=== PATIENT | female | born 1960 | race Caucasian/White ===

== ENCOUNTER 2020-06-11 05:04 | Observation (INO) ==
--- NOTE | 2020-05-20 09:38 | PAT Medication Instructions ---
Medication Instructions Date of Service May 20, 2020 Home Medications albuterol sulfate 90 mcg/actuation breath activated powder inhaler 2 inh INHALATION Q6H PRN beclomethasone dipropionate 80 mcg/actuation HFA breath activated aerosol 2 inh INHALATION BID budesonide-formoterol HFA 160 mcg-4.5 mcg/actuation aerosol inhaler 2 puff INHALATION BID desloratadine 5 mg tablet 5 mg PO QAM escitalopram oxalate 10 mg tablet 10 mg PO QAM lansoprazole 15 mg capsule,delayed release 15 mg PO HS levothyroxine 125 mcg capsule 125 mcg PO QAM lisinopril 5 mg tablet 5 mg PO QAM mometasone 50 mcg/actuation nasal spray 2 spray INTRANASAL BID simvastatin 20 mg tablet 20 mg PO HS trazodone 50 mg tablet 50 mg PO HS triamterene 37.5 mg-hydrochlorothiazide 25 mg capsule 1 cap PO QAM Theraworx 1 dose TOPICAL QAM acetaminophen 1,300 mg PO BID diclofenac sodium [Voltaren] 2 g TOPICAL QID PRN fiber 2 cap PO BID keanzgrx-rsups-hjhrh-CF borate [[facility]] 2 tab PO QPM ibuprofen [Advil] 600 mg PO BID inulin [Fiber Gummies] 4 g PO QAM multivitamin 2 tab PO QAM omega-3 fatty acids [[place] 3] 2,000 mg PO QPM ASK your surgeon for instructions ibuprofen [Advil] 600 mg PO BID STOP taking 2 weeks before surgery (or as soon as possible if surgery is within 2 weeks) gduwtiov-tiwia-mozoh-CF borate [Frogdice] 2 tab PO QPM omega-3 fatty acids [Ray[place] 3] 2,000 mg PO QPM STOP taking 24 hours before surgery Theraworx 1 dose TOPICAL QAM diclofenac sodium [Voltaren] 2 g TOPICAL QID PRN DO NOT take the morning of surgery desloratadine 5 mg tablet 5 mg PO QAM lisinopril 5 mg tablet 5 mg PO QAM triamterene 37.5 mg-hydrochlorothiazide 25 mg capsule 1 cap PO QAM fiber 2 cap PO BID inulin [Fiber Gummies] 4 g PO QAM multivitamin 2 tab PO QAM Take morning of surgery With a small sip of water, OTHERWISE NOTHING TO EAT OR DRINK AFTER MIDNIGHT: albuterol sulfate 90 mcg/actuation breath activated powder inhaler 2 inh INHALATION Q6H PRN (use if needed; please bring rescue inhaler with you to hospital day of surgery if possible) beclomethasone dipropionate 80 mcg/actuation HFA breath activated aerosol 2 inh INHALATION BID budesonide-formoterol HFA 160 mcg-4.5 mcg/actuation aerosol inhaler 2 puff INHALATION BID escitalopram oxalate 10 mg tablet 10 mg PO QAM levothyroxine 125 mcg capsule 125 mcg PO QAM mometasone 50 mcg/actuation nasal spray 2 spray INTRANASAL BID acetaminophen 1,300 mg PO BID (okay to take up to 4 hours prior to surgery if needed) Take evening before surgery albuterol sulfate 90 mcg/actuation breath activated powder inhaler 2 inh INHALATION Q6H PRN (if needed) beclomethasone dipropionate 80 mcg/actuation HFA breath activated aerosol 2 inh INHALATION BID budesonide-formoterol HFA 160 mcg-4.5 mcg/actuation aerosol inhaler 2 puff INHALATION BID lansoprazole 15 mg capsule,delayed release 15 mg PO HS mometasone 50 mcg/actuation nasal spray 2 spray INTRANASAL BID simvastatin 20 mg tablet 20 mg PO HS trazodone 50 mg tablet 50 mg PO HS acetaminophen 1,300 mg PO BID fiber 2 cap PO BID Other Notes If you have any questions please call us at [phone] or [phone] or [phone] or [phone]
--- NOTE | 2020-05-21 10:35 | Anesthesiology Consultation ---
Date of Service May 21, 2020 Assessment & Plan (1) Encounter for pre-operative examination: COVID screening: Per assessment on 05/21: Travel screen negative, no known COVID- 19 positive contacts or current COVID-19 related symptoms. Surgeon arranging preop COVID testing (scheduled 06/05; [facility]). Awaiting results. Chart Review Chart Review: Acceptable Risk for Surgery and Patient seen in Pre Admission Testing Teaching & Discussion Pre-Anesthesia Teaching/Discussion Notes: Instructed NPO after midnight before surgery,except medications with 15 cc of water. Medication instructions provided according to the PAT guidelines. History Surgery Operation Date: 06/11/20 07:30 Proposed Procedures p Left Total Hip Arthroplasty - Jose Luis Bertrand MD Height/Weight Height: 5 ft 1 in Weight: 83.4 kg Allergies Allergy/AdvReac Type Severity Reaction Status Date / Time Penicillins Allergy Unknown Hives Verified 05/20/20 16:05 aspirin AdvReac Unknown Nose Bleed Verified 04/29/20 14:34 morphine AdvReac Unknown Vomiting Verified 05/20/20 16:05 Medications Home Medications Medication Instructions Recorded Confirmed Last Taken albuterol sulfate 90 mcg/actuation 2 inh INHALATION Q6H PRN 11/25/19 04/29/20 Unknown breath activated powder inhaler beclomethasone dipropionate 80 2 inh INHALATION BID 11/25/19 04/29/20 Unknown mcg/actuation HFA breath activated aerosol budesonide-formoterol HFA 160 2 puff INHALATION BID 11/25/19 04/29/20 Unknown mcg-4.5 mcg/actuation aerosol inhaler desloratadine 5 mg tablet 5 mg PO QAM 11/25/19 04/29/20 Unknown escitalopram oxalate 10 mg tablet 10 mg PO QAM 11/25/19 04/29/20 Unknown lansoprazole 15 mg capsule,delayed 15 mg PO HS 11/25/19 04/29/20 Unknown release levothyroxine 125 mcg capsule 125 mcg PO QAM 11/25/19 04/29/20 Unknown lisinopril 5 mg tablet 5 mg PO QAM 11/25/19 04/29/20 Unknown mometasone 50 mcg/actuation nasal 2 spray INTRANASAL BID 11/25/19 04/29/20 Unknown spray simvastatin 20 mg tablet 20 mg PO HS 11/25/19 04/29/20 Unknown trazodone 50 mg tablet 50 mg PO HS 11/25/19 04/29/20 Unknown triamterene 37.5 1 cap PO QAM 11/25/19 04/29/20 Unknown mg-hydrochlorothiazide 25 mg capsule Theraworx 1 dose TOPICAL QAM 04/29/20 04/29/20 Unknown acetaminophen 1,300 mg PO BID 04/29/20 04/29/20 Unknown diclofenac sodium [Voltaren] 2 g TOPICAL QID PRN 04/29/20 04/29/20 Unknown fiber 2 cap PO BID 04/29/20 04/29/20 Unknown peirbmwf-yhgke-muvqh-CF borate 2 tab PO QPM 04/29/20 04/29/20 Unknown [[facility]] ibuprofen [Advil] 600 mg PO BID 04/29/20 04/29/20 Unknown inulin [Fiber Gummies] 4 g PO QAM 04/29/20 04/29/20 Unknown multivitamin 2 tab PO QAM 04/29/20 04/29/20 Unknown omega-3 fatty acids [[place] 3] 2,000 mg PO QPM 04/29/20 04/29/20 Unknown Past Medical History Medical History Asthma Allergies induced, no recent flares GERD (gastroesophageal reflux disease) controlled Hx of gastric ulcer Remote hx Hyperlipidemia Hypertension Obesity Osteoarthritis Exercise / Class Metabolic Activity II 4-5 Yardwork/Stairs/Walk up hill Past Family History Family History Other Coronary heart disease No family history of adverse response to anesthesia Prostate cancer Past Surgical History Surgical History H/O tubal ligation History of colonoscopy History of esophagogastroduodenoscopy (EGD) History of placement of ear tubes BMT History of tonsillectomy Past Anesthesia History No Hx of Anesthesia Complications and No Family Hx of Anesthesia Complications History of PONV No Hx of PONV and No Hx of Motion Sickness Social History Smoking Status: Never smoker Do You Dip or Chew Tobacco: No Hx Alcohol Use: No Hx Substance Use: No substance use type: does not use Review of Systems No snoring. Patient denies chest pain, shortness of breath, dyspnea on exertion, fever, chills, cough, wheezing, palpitations. Physical Exam Vital Signs VITALS BP 149/89 P 72 TEMP 97.9 SP02 94%RA RESP 18 PHYSICAL Full cervical extension range of motion. Full TMJ range of motion. TMD 3 finger breaths Mallampati Score 1 Dentition: intact Lungs: clear throughout to auscultation Cardiac: regular rate and rhythm, no murmurs noted Spine: normal Carotid arteries: negative bruit Extremities: no edema Short neck Testing Laboratory Results 05/21/20 11:03 05/21/20 11:03 PT 10.1 Seconds (9.0-12.0) 05/21/20 11:03 INR 1.0 (0.9-1.1) 05/21/20 11:03 APTT 24.5 Seconds (21.0-31.0) 05/21/20 11:03 Blood Type O Positive 05/21/20 11:03 Antibody Screen NEGATIVE 05/21/20 11:03 Electrocardiogram Date: 05/21/20 NSR at 76bpm. unconfirmed report. Chest X-Ray Date: 05/21/20 FINDINGS: Cardiomediastinal and hilar silhouettes are within normal limits. No pneumothorax, pleural effusion, airspace consolidation or overt pulmonary edema. Degenerative changes of the shoulders and spine. Mild right hemidiaphragmatic elevation. IMPRESSION: No acute process.
--- NOTE | 2020-05-21 11:27 | XRay Report ---
XR chest Pre-admission PA/Lat HISTORY: 59 years-old Female pat preoperative exam. No acute chest complaints COMPARISON: None TECHNIQUE: PA and lateral views of the chest FINDINGS: Cardiomediastinal and hilar silhouettes are within normal limits. No pneumothorax, pleural effusion, airspace consolidation or overt pulmonary edema. Degenerative changes of the shoulders and spine. Mil d right hemidiaphragmatic elevation. IMPRESSION: No acute process. ACT 112: Negative or not required by law. The above report was generated using voice recognition software. It may contain grammatical, syntax o r spelling errors. Electronically signed by: Danilo Fernandez M.D. 05/21/2020 11:26 AM
[2020-05-21 11:40] LABS: Basophils # (auto) 0.03 K/uL (0-0.2); Basophils % (auto) 0.3 %; Hematocrit (blood only) 42.8 % (37-47); Hemoglobin 14.5 g/dL (12.0-16.0); Immature Granulocytes # (auto) 0.01 K/uL (0.00-0.02); Immature Granulocytes % (auto) 0.1 %; Lymphocytes # (auto) 1.86 K/uL (1.2-3.4); Lymphocytes % (auto) 17.8 %; Mean Corpuscular Hemoglobin 31.5 pg (25-34); Mean Corpuscular Hgb Conc 33.9 g/dL (32-36); Mean Platelet Volume 9.5 fL (7.4-10.4); Monocytes # (auto) 0.93 K/uL (0.11-0.59); Monocytes % (auto) 8.9 %; Neutrophils # (auto) 7.51 K/uL (1.4-6.5); Neutrophils % (auto) 71.9 %; Platelet Count 289 K/uL (130-400); RDW Coefficient of Variation 12.6 % (11.5-14.5); RDW Standard Deviation 42.5 fL (36.4-46.3); White Blood Count 10.44 K/uL (4.8-10.8)
[2020-05-21 11:41] LABS: Partial Thromboplastin Ratio 0.9; Partial Thromboplastin Time 24.5 Seconds (21.0-31.0); Prothrombin Time 10.1 Seconds (9.0-12.0)
[2020-05-21 14:27] LABS: BUN Creatinine Ratio 15.2 (10-20); Calcium 9.5 mg/dl (8.5-10.1); Creatinine Clr Calc Pharmacy 68.3 ml/min; Est GFR (African American) 83.4; Est GFR (Non-African American) 71.9; Potassium 4.3 mmol/L (3.5-5.1)
--- NOTE | 2020-05-21 17:07 | Electrocardiogram Report ---
Test Reason : Blood Pressure : / mmHG Vent. Rate : 076 BPM Atrial Rate : 076 BPM P-R Int : 172 ms QRS Dur : 084 ms QT Int : 392 ms P-R-T Axes : 066 061 052 degrees QTc Int : 441 ms Normal sinus rhythm Normal ECG No previous ECGs available Confirmed by Royer Thompson ([id number]) on 05/21/2020 5:07:15 PM Referred By: Jose Luis Bertrand Confirmed By:Basil Thompson
[2020-06-11] MEDS ORDERED: Scopolamine 1 MG TDSY TD SCH (06:00)
[2020-06-11] MEDS ORDERED: METOCLOPRAMIDE HCL 10 MG TABLET PO SCH (06:00)
[2020-06-11] MEDS ORDERED: LR 500ML BOLUS, THEN 15ML/HR IV SCH (06:00)
[2020-06-11] MEDS ORDERED: ceFAZolin 2000MG 2,000 MG/15 ML SYR IV SCH (06:00)
[2020-06-11] MEDS ORDERED: GABAPENTIN 600 MG DOSE PO SCH (06:00)
[2020-06-11] MEDS ORDERED: LR 60ML/HR IV SCH (06:00)
[2020-06-11] MEDS ORDERED: ACETAMINOPHEN 500 MG TAB PO SCH (06:00)
[2020-06-11] MEDS ORDERED: FAMOTIDINE 20 MG TAB PO SCH (06:00)
[2020-06-11] MEDS ORDERED: TRANEXAMIC ACID 1,000 MG **IV Pre-op IV SCH (06:00)
[2020-06-11] MEDS ORDERED: BUPIVACAINE 0.5 % 5 MG/1 ML PF 10ML VIAL ONE (06:20)
[2020-06-11] MEDS ORDERED: BUPIVACAINE/EPINEPHRINE 0.5% MPF 1:200,000 30 ML VIAL ONE (06:40)
[2020-06-11] MEDS ORDERED: BACITRACIN INJ 50,000 UNIT VIAL ONE (06:40)
[2020-06-11] MEDS ORDERED: PROPOFOL IV EMULSION 10 MG/ML 20 ML VIAL IV ONE (06:42)
[2020-06-11] MEDS ORDERED: MIDAZOLAM HCL 1 MG/ML 2ML VIAL ONE ×2 (06:42→07:56)
[2020-06-11] MEDS ORDERED: LIDOCAINE HCL 2% 2 ML VIAL/AMP(20MG/ML) INFIL ONE (06:42)
[2020-06-11] MEDS ORDERED: MoRPHine SULFATE PF 1 MG/ML 10 ML AMP/VIAL ONE (06:45)
--- NOTE | 2020-06-11 06:50 | History & Physical Bridge Note ---
Date of Service June 11, 2020 History & Physical Bridge Note I have examined the patient, reviewed the History & Physical and in the interval since the performance of the History & Physical I have noted the following changes of clinical significance: no changes noted
[2020-06-11] MEDS ORDERED: MEPERIDINE HCL 25 MG/ML CARP/VIAL IV PRN (07:09)
[2020-06-11] MEDS ORDERED: MoRPHine SULFATE PF 1 MG/ML 10 ML AMP/VIAL INT SPINAL ONE (07:09)
[2020-06-11] MEDS ORDERED: diphenhydrAMINE 50 MG/ML VIAL IV PRN (07:09)
[2020-06-11] MEDS ORDERED: NALOXONE HCL 1 MG in SODIUM CHLORIDE 0.9% 1000ML 1,000 ML IV PRN (07:09)
[2020-06-11] MEDS ORDERED: NALOXONE HCL 0.08 MG in SYRINGE 1.8 ML IV PRN (07:09)
[2020-06-11] MEDS ORDERED: NALOXONE HCL 0.4 MG/1 ML VIAL/CARP IV PRN ×2 (07:09→09:49)
[2020-06-11] MEDS ORDERED: LACTATED RINGER'S 500 ML IV PRN (07:09)
[2020-06-11] MEDS ORDERED: ONDANSETRON INJ 2 MG/ML 2 ML VIAL IV PRN (07:09)
[2020-06-11] MEDS ORDERED: ePHEDrine sulfate 50 MG/ML AMP IV PRN (07:09)
[2020-06-11] MEDS ORDERED: DC INTRASPINAL MORPHINE SCH (07:15)
[2020-06-11] MEDS ORDERED: SODIUM CHLORIDE 0.9% 1000ML 1,000 ML IV SCH (07:15)
[2020-06-11] MEDS ORDERED: NO NARCOTICS OR SEDATIVES SCH (07:15)
[2020-06-11] MEDS ORDERED: KETAMINE 50 MG/5 ML SYRINGE ONE (07:37)
[2020-06-11] MEDS ORDERED: PHENYLEPHRINE 100MCG/ML 5ML SYR ONE (08:04)
--- NOTE | 2020-06-11 08:26 | Post Operative Brief Note ---
PG Immediate Post Op with CF Date of Surgery June 11, 2020 Pre & Post Diagnosis Operation Date: 06/11/20 07:00 Pre-Op Diagnosis: Left Hip Degenerative Joint Disease Post-Op Diagnosis: Left Hip Degenerative Joint Disease I identified the patient and participated in the time-out.: Yes Procedure Operation Date: 06/11/20 07:00 Actual Procedures p Left Total Hip Arthroplasty(Left) - Jose Luis Bertrand MD Surgeon Jose Luis Bertrand MD [employer] NERI Jackson Estimated Blood Loss 200 Findings Consistent with Post-Op Diagnosis Fluids 1000 cc Specimens Specimen Description: Permanent A. Left femoral head Drains Salvador Catheter Anesthesia Type Spinal MAC Disposition Accompanied Patient To Recovery: Yes Disposition: Recovery Room
--- NOTE | 2020-06-11 08:46 | XRay Report ---
AP PELVIS, AP AND CROSSTABLE LATERAL LEFT HIP History: Left total hip arthroplasty. Degenerative arthritis. Postop. FINDINGS: The patient is status post a left total hip arthroplasty. The hardware is intact. No fractu re or dislocation. Skin evon are in place. IMPRESSION: Left total hip arthroplasty. No evidence for hardware complication. ACT 112: Negative or not required by law. Electronically signed by: Shawn Chambers M.D. 06/11/2020 8:45 AM
--- NOTE | 2020-06-11 09:13 | Anesthesiology Progress Note ---
Date of Service June 11, 2020 Anesthesia Post Procedure Vital Signs Vital Signs: Temp Pulse Pulse Resp BP Pulse Ox 06/11/20 09:00 97.5 F L 86 13 120/67 94 06/11/20 08:50 97.5 F L 87 12 117/75 100 06/11/20 08:40 98 H 14 121/66 100 06/11/20 08:30 83 16 102/52 L 98 06/11/20 08:21 97.0 F L 88 18 98/50 L 94 06/11/20 05:20 98.1 F 87 20 187/91 H 99 Transfer of Care Handoff Completed per policy Notes Mental Status: alert / awake / arousable and participated in evaluation Patient Amnestic to Procedure: Yes Nausea / Vomiting: adequately controlled Pain: adequately controlled Airway Patency, RR, SpO2: stable & adequate BP & HR: stable & adequate Hydration State: stable & adequate Anesthetic Complications: no major complications apparent and Pt Satisfied with anesthetic care
[2020-06-11] MEDS ORDERED: BUDESONIDE/FORMOTEROL FUMARATE 160/4.5 60 PUFFS/INHALER INH SCH (09:49)
[2020-06-11] MEDS ORDERED: ALUMINUM/MAGNESIUM SUSP 30 ML UDC PO PRN (09:49)
[2020-06-11] MEDS ORDERED: NON-FORMULARY MEDICATION (Inulin [Fiber Gummies] 2 gram Tablet,Chewable) PO SCH (09:49)
[2020-06-11] MEDS ORDERED: MAGNESIUM HYDROXIDE SUSP 30 ML UDC PO PRN (09:49)
[2020-06-11] MEDS ORDERED: bisacodyL 10 MG SUPP PR PRN (09:49)
[2020-06-11] MEDS ORDERED: [UNRECOGNIZED DRUG - OTHER] TOP SCH (09:49)
[2020-06-11] MEDS ORDERED: NON-FORMULARY MEDICATION (Multivitamin Tablet,Chewable) PO SCH (09:49)
[2020-06-11] MEDS: SODIUM CHLORIDE 0.9% 1000ML 1,000 ML IV SCH ×2 (10:09→20:07)
[2020-06-11] MEDS ORDERED: TRIAMTERENE/HCTZ 37.5/25MG CAP PO ONE (10:15)
[2020-06-11] MEDS ORDERED: DOCUSATE SODIUM 100 MG CAP PO ONE (10:15)
[2020-06-11] MEDS ORDERED: LEVOTHYROXINE SODIUM 125 MCG TABLET PO ONE (10:15)
[2020-06-11] MEDS ORDERED: FLUTICASONE/VILANTEROL 200/25MCG 14 PUFFS/INHALER INH ONE (10:15)
[2020-06-11] MEDS ORDERED: lisinopril 5 MG TAB PO ONE (10:15)
[2020-06-11] MEDS ORDERED: FLUTICASONE FUROATE 200MCG 14 PUFFS/INHALER INH ONE (10:15)
[2020-06-11] MEDS ORDERED: ASPIRIN 81 MG ECTAB PO ONE (10:15)
[2020-06-11] MEDS ORDERED: ESCITALOPRAM OXALATE 10 MG TAB PO ONE (10:15)
[2020-06-11] MEDS ORDERED: MULTIVITAMIN TAB PO ONE (10:15)
[2020-06-11] MEDS ORDERED: ALBUTEROL HFA 8 GM INHALER INH PRN (10:15)
[2020-06-11] MEDS: CLARINEX~ORDER AWAITING ACTION SCH ×3 (11:04→23:28)
[2020-06-11] MEDS ORDERED: KETOROLAC 30 MG/ML VIAL IV ONE (12:00)
[2020-06-11] MEDS: ACETAMINOPHEN 500 MG TAB PO SCH ×2 (13:37→22:22)
[2020-06-11] MEDS ORDERED: TRANEXAMIC ACID / 0.7% NACL 1,000 MG/100 ML BAG IV SCH (15:00)
--- NOTE | 2020-06-11 15:06 | Progress Notes ---
DATE: 06/11/2020 SUBJECTIVE: A 59-year-old white female postop from a left hip replacement. She is doing well. Not having any pain yet. No chest pain or shortness of breath. Not feeling dizzy or lightheaded. OBJECTIVE: VITAL SIGNS: Temperature 37.0. Vital signs are stable. GENERAL: Shows a pleasant, middle-aged female. She is sitting up in bed and using her phone. She looks quite comfortable. LUNGS: Clear to auscultation. HEART: Regular rate and rhythm. ABDOMEN: Soft, nontender, nondistended. EXTREMITIES: Grossly neurovascularly intact except as follows: Examination of the left hip and leg reveals the leg lengths are equal. Hip is located. Dressing is clean, dry and intact. Thigh is soft and supple. She is neurologically intact. X-RAYS: X-rays of the left hip from recovery room are reviewed. It shows left uncemented total hip arthroplasty. Components looked to be in good position. No signs of problems. ASSESSMENT: A 59-year-old white female postoperative from a left uncemented total hip arthroplasty. She is doing well. Pain is controlled. Hip is located. She is neurologically intact. PLAN: 1. DVT prophylaxis including thigh-high TEDs, SCDs, and aspirin twice a day. 2. PT/OT. Weight bear as tolerated. Left total hip protocol. 3. Pain control, doing well with current pain regimen. 4. Disposition: Plan to discharge to home with some home health once adequately recovered and medically stable.
[2020-06-11] MEDS: Scopolamine CHECK PATCH PLACEMENT SCH ×2 (15:35→23:28)
[2020-06-11] MEDS: ceFAZolin 2000MG 2,000 MG/15 ML SYR IV SCH ×2 (15:39→23:32)
--- NOTE | 2020-06-11 16:51 | Operative Report ---
Post Operative Report Pre & Post Diagnosis Operation Date: 06/11/20 07:00 Pre-Op Diagnosis: Left Hip Degenerative Joint Disease Post-Op Diagnosis: Left Hip Degenerative Joint Disease I identified the patient and participated in the time-out.: Yes Procedure Operation Date: 06/11/20 07:00 Actual Procedures p Left Total Hip Arthroplasty(Left) - Jose Luis Bertrand MD Surgeon Jose Luis Bertrand MD [employer] NERI Jackson Estimated Blood Loss 200 Findings Consistent with Post-Op Diagnosis Operative findings revealed advanced left hip DJD. She had extensive grade 4 [id number] disease of the femoral head and acetabulum. She had a large medial side osteophyte. Moderate-sized joint effusion. Fluids 1000 cc Specimens Left femoral head sent for pathology. Drains None Anesthesia Type Spinal MAC Complications none Disposition Accompanied Patient To Recovery: Yes Disposition: Recovery Room Indications Patient is a 59-year-old female has had a several year history of increasing left hip pain discomfort gradually progressed despite conservative care. X-ray showed revealed advanced hip DJD. She elected proceed with total hip arthroplasty. Description of Procedure Operative implants consist of: 1. Biomet G7 size 50 mm acetabular shell. 2. 6.5 cancellous acetabular screws 135 mm length 125 mm length. 3. [place] hole pattern storage clerk. 4. 50 mm outer diameter and 32 mm diameter highly cross-linked polyethylene liner. 5. Melany Corail size 10 KLA femoral stem. 6. +5/32 mm ceramic articular ball. The patient was taken to the operating room, identified, and placed on the operating table supine position but all contractors were properly padded. IV antibiotics tried by anesthesia team. A spinal anesthetic and been implemented holding area. Salvador catheter was placed in sterile fashion. The patient was then placed in the right lateral decubitus position. An axillary roll was placed. [place] hip positioner was used for positioning. The left hip and leg were then prepped and draped in usual sterile fashion. A posterior lateral approach to the left hip was then performed through a curvilinear incision centered over the greater trochanter. Sharp dissection got through subcutaneous tissue down to the IT band gluteal fascia the IT band gluteal fascia then incised longitudinally in line with skin incision. The underlying greater bursa was excised. The piriformis and external rotators were taken off the posterior aspect hip joint capsule. Great care was taken throughout the procedure protect the sciatic nerve at all times. A posterior capsulotomy was then performed leaving a large flap for later repair. It was internally rotated and dislocated. Femoral neck osteotomy cut was made with Final Cut 12 mm above the lesser trochanter. Femoral head was removed and sent for pathology. The femur was retracted anteriorly. Attention drawn the acetabulum. The acetabular labrum was excised per the pulmonary fat was excised. Sequential reaming the acetabular was then performed given the size 43 and progressing up to 49. I did reamed a little bit with a 50 reamer. A 50 mm Biomet G7 acetabular shell was then placed in about 40 degrees lateral opening and 20 degrees of anteversion. It was fixed with two 6.5 cancellous acetabular screws. A trial liner was placed. A small anterior osteophyte was removed. Attention drawn the femur. The proximal femur was entered with a cookie-cutter followed by canal finder. Broached begin the size 8 and progressed to do a 10. Got good fit of the 10. I then trialed the hip and the +5 articular ball recreated soft tissue tension appropriately and leg lengths equal. The hip was fully stable in full extension and external rotation and flexion to 9 degrees internal rotation over [address] I elect to place these implants. All trial implants were removed. An apex hole pattern storage clerk was placed. Highly cross-linked polyethylene liner was placed. A DePuy Step On Up GraphicsA size 10 femoral stem was impacted in position. A +5/32 mm ceramic articular ball was placed. Hip wa s located once again found to be stable. Attention drawn toward closing. The wound was irrigated with copious also pulsatile lavage solution. I did inject locally with 60 cc of half percent Marcaine with epinephrine. The posterior capsule and external rotators were then repaired through drill holes in the posterior trochanter with #2 Tycron suture. The IT band gluteal fascia then closed in 1 PDS suture in a running fashion for the subcutaneous tissue then closed with 2 layers the deep layer #1 Vicryl suture and superficial layer with 2-0 Dexon suture in a buried interrupted fashion. Skin was closed skin evon. Leg was then cleaned dried and sterile dressing applied Xeroform, 4 x 4's, ABD pad, foam tape was applied. Patient then transferred to the recovery room in stable condition. Patient tolerated procedure well and there were no complications. Celestino Jackson, my physician high school assistant principal, was present for the entire procedure. His assistance was essential and required for appropriate patient positioning, prepping and draping, surgical exposure, performing the technical details of the operation, placement the implants, closure of the wound, and placement of the sterile bandage. I attest to the content of the Intraoperative Record and any orders documented therein. Any exceptions are noted below.
[2020-06-11] MEDS: KETOROLAC 30 MG/ML VIAL IV SCH ×2 (17:50→23:30)
[2020-06-11] MEDS: ASCORBIC ACID 500 MG TAB PO SCH (17:50)
[2020-06-11] MEDS: ASPIRIN 81 MG ECTAB PO SCH (20:09)
[2020-06-11] MEDS: CALCIUM POLYCARBOPHIL 625MG TAB PO SCH (20:10)
[2020-06-11] MEDS: DOCUSATE SODIUM 100 MG CAP PO SCH (20:10)
[2020-06-11] MEDS: FLUTICASONE PROPIONATE NA SPR 16 GM BTL SCH (20:11)
[2020-06-11] MEDS ORDERED: OMEGA-3 (PURIFIED FISH OIL) 1 GM CAP PO SCH (21:00)
[2020-06-11] MEDS ORDERED: traZODone HCL 50 MG TAB PO SCH (21:00)
[2020-06-11] MEDS ORDERED: PANTOprazole 40 MG TAB PO SCH (21:00)
[2020-06-11] MEDS ORDERED: SENNA 8.6 MG TAB PO SCH (21:00)
[2020-06-11] MEDS ORDERED: SIMVASTATIN 20 MG TAB PO SCH (21:00)
[2020-06-11] MEDS ORDERED: NON-FORMULARY MEDICATION (Glucosam-Chond-Hyalu-Cf Borate [Move Free Joint Health] 750 mg-1 PO SCH (21:00)
[2020-06-12] MEDS ORDERED: traMADol HCL 50 MG TABLET PO PRN (01:09)
[2020-06-12] MEDS ORDERED: diphenhydrAMINE Capsule 25 MG CAP PO PRN (01:09)
[2020-06-12] MEDS ORDERED: HYDROmorphone INJ 0.5 MG/0.5 ML SYR IV PRN (01:09)
[2020-06-12] MEDS ORDERED: METOCLOPRAMIDE HCL INJ 5 MG/ML 2 ML VIAL IV PRN (01:09)
[2020-06-12] MEDS ORDERED: ONDANSETRON INJ 2 MG/ML 2 ML VIAL IV PRN (01:09)
[2020-06-12] MEDS: SODIUM CHLORIDE 0.9% 1000ML 1,000 ML IV SCH (05:38)
[2020-06-12] MEDS: ACETAMINOPHEN 500 MG TAB PO SCH (05:38)
[2020-06-12] MEDS: KETOROLAC 30 MG/ML VIAL IV SCH (06:17)
[2020-06-12] MEDS ORDERED: LEVOTHYROXINE SODIUM 125 MCG TABLET PO SCH (06:30)
[2020-06-12] MEDS ORDERED: dexAMETHasone 4 MG TAB PO SCH (08:00)
[2020-06-12] MEDS: DOCUSATE SODIUM 100 MG CAP PO SCH (08:53)
[2020-06-12] MEDS: CALCIUM POLYCARBOPHIL 625MG TAB PO SCH (08:54)
[2020-06-12] MEDS: ASCORBIC ACID 500 MG TAB PO SCH (08:54)
[2020-06-12] MEDS: ASPIRIN 81 MG ECTAB PO SCH (08:55)
[2020-06-12 08:56] LABS: Basophils # (auto) 0.02 K/uL (0-0.2); Basophils % (auto) 0.2 %; Eosinophils # (auto) 0.08 K/uL (0-0.5); Eosinophils % (auto) 0.7 %; Hematocrit (blood only) 35.8 % (37-47); Hemoglobin 12.5 g/dL (12.0-16.0); Immature Granulocytes # (auto) 0.02 K/uL (0.00-0.02); Immature Granulocytes % (auto) 0.2 %; Lymphocytes # (auto) 1.65 K/uL (1.2-3.4); Lymphocytes % (auto) 15.2 %; Mean Corpuscular Hemoglobin 32.1 pg (25-34); Mean Corpuscular Hgb Conc 34.9 g/dL (32-36); Mean Corpuscular Volume 91.8 fL (80-100); Mean Platelet Volume 9.4 fL (7.4-10.4); Monocytes # (auto) 1.03 K/uL (0.11-0.59); Monocytes % (auto) 9.5 %; Neutrophils # (auto) 8.02 K/uL (1.4-6.5); Neutrophils % (auto) 74.2 %; Platelet Count 268 K/uL (130-400); RDW Coefficient of Variation 12.7 % (11.5-14.5); RDW Standard Deviation 42.8 fL (36.4-46.3); White Blood Count 10.82 K/uL (4.8-10.8)
[2020-06-12] MEDS: Scopolamine CHECK PATCH PLACEMENT SCH (08:56)
[2020-06-12] MEDS: FLUTICASONE PROPIONATE NA SPR 16 GM BTL SCH (08:56)
[2020-06-12] MEDS: CLARINEX~ORDER AWAITING ACTION SCH (08:57)
[2020-06-12] MEDS ORDERED: FLUTICASONE/VILANTEROL 200/25MCG 14 PUFFS/INHALER INH SCH (09:00)
[2020-06-12] MEDS ORDERED: TRIAMTERENE/HCTZ 37.5/25MG CAP PO SCH (09:00)
[2020-06-12] MEDS ORDERED: FLUTICASONE FUROATE 200MCG 14 PUFFS/INHALER INH SCH (09:00)
[2020-06-12] MEDS ORDERED: lisinopril 5 MG TAB PO SCH (09:00)
[2020-06-12] MEDS ORDERED: ESCITALOPRAM OXALATE 10 MG TAB PO SCH (09:00)
[2020-06-12] MEDS ORDERED: MULTIVITAMIN TAB PO SCH (09:00)
--- NOTE | 2020-06-12 09:14 | Progress Notes ---
DATE: 06/12/2020 SUBJECTIVE: A 59-year-old white female postop day 1 from a left hip replacement. She is doing well. Pain is controlled. She was a little hypotensive and a little dizzy last evening, but better this morning. No chest pain or shortness of breath. Not feeling dizzy or lightheaded. OBJECTIVE: VITAL SIGNS: Temperature is 37.3. Vital signs stable. Blood pressure 119/70. GENERAL: Shows a pleasant, middle-aged female. She is sitting up in her bedside and looks comfortable this morning. EXTREMITIES: Examination of left hip reveals the dressing to be clean, dry and intact. Leg lengths were equal. Thigh is soft and supple. She is neurologically intact. LABORATORY DATA: Labs are pending. ASSESSMENT: A 59-year-old white female postop day 1 from a left hip replacement, doing well. Pain is controlled. Hip is located. She is neurologically intact. PLAN: 1. DVT prophylaxis including thigh-high TEDs, SCDs, and aspirin twice a day. 2. PT/OT. Weight bear as tolerated. Left total hip protocol. 3. Pain control, doing well with current pain regimen. 4. Disposition: Plan to discharge to home with some home health likely later today.
[2020-06-12 09:22] LABS: BUN Creatinine Ratio 18.3 (10-20); Calcium 9.3 mg/dl (8.5-10.1); Creatinine Clr Calc Pharmacy 92.7 ml/min; Est GFR (African American) 113.7; Est GFR (Non-African American) 98.1; Potassium 3.9 mmol/L (3.5-5.1)
== END 2020-06-12 12:09 | disposition home health service (06) ==
LOC: ASU 05:04 → 3E 05:04